=== PATIENT | female | born 1955 | race Caucasian/White ===

== ENCOUNTER 2022-01-18 09:13 | Emergency (ER) | payer MEDICARE, SELFPAY ==
--- NOTE | 2022-01-18 09:18 | ED.URI ---
HPI - URI/Sore Throat General Chief Complaint: Upper Respiratory Infection Stated Complaint: cough, congestion Time Seen by Provider: 01/18/22 09:18 Source: patient Mode of arrival: ambulatory Limitations: no limitations History of Present Illness HPI Narrative: Daniela is a 66-year-old female patient presenting to the clinic today with complaints of cough and congestion x5 days. She reports that she is having a dry cough and nasal congestion/postnasal drip. She denies any fever but has had some slight chills. Denies any shortness of breath or chest pain. Denies any known sick contacts MD elicited complaint: cough and nasal congestion Related Data Home Medications Medication Instructions Recorded Confirmed losartan 50 mg-hydrochlorothiazide tablet 01/18/22 12.5 mg tablet rosuvastatin 5 mg tablet mg 01/18/22 Allergies Allergy/AdvReac Type Severity Reaction Status Date / Time Penicillins Allergy Severe Unknown Verified 08/23/17 08:06 Review of Systems Review of Systems: Pertinent positives per HPI. Patient denies any fever, chills, rash, headache, visual changes, dizziness, shortness of breath, chest pain, palpitations, nausea, vomiting, diarrhea, constipation, abdominal pain, or any urinary issues. PMFSH Comments At the time of my signature, I reviewed and agree with the nursing past medical, surgical, social, and family history. There is no relevant family history pertinent to the patient complaint. Exam Narrative: General: Well-developed, well nourished, in no apparent distress Head: Normocephalic, atraumatic Eyes: Pupils equally round and reactive to light bilaterally, EOM intact, sclera and conjunctive clear, no discharge, lids normal Ears: TMs intact and clear, ear canals clear, no drainage, grossly hearing normal. Nose: Nares patent, clear nasal discharge, mild inflammation, no sinus tenderness. Mouth: Oral pharynx without lesions or masses, good dentition, MMM. Postnasal drip Neck: Supple, trachea midline, no enlargement of anterior or posterior cervical nodes, no thyroid masses or goiter palpable. Cardio: Regular rate and rhythm, s1 and s2 normal, no murmur appreciated. Resp: Clear to auscultation bilaterally, no rhonchi, rales, wheezing or rubs Course Course Emergency Course: Portions of this record may have been created with voice recognition software. Level of Care: Express Care Visit Vital Signs Vital signs: Vital Signs Temperature 37.0 C 01/18/22 09:22 Pulse Rate 91 01/18/22 09:22 Respiratory Rate 16 01/18/22 09:22 Blood Pressure 130/77 01/18/22 09:22 Pulse Oximetry 97 01/18/22 09:22 Oxygen Delivery Room Air 01/18/22 09:22 Temperature 37.0 C 01/18/22 09:22 Pulse Rate 91 01/18/22 09:22 Respiratory Rate 16 01/18/22 09:22 Blood Pressure 130/77 01/18/22 09:22 Pulse Oximetry 97 01/18/22 09:22 Oxygen Delivery Room Air 01/18/22 09:22 Vital signs reviewed MDM - URI/Sore Throat MDM Narrative Medical decision making narrative: At the time of visit patient is resting comfortably on the exam table. I suspect the patient has an upper respiratory infection/postnasal drip. I will give prescription for some prednisone to help dry up secretions and help with any inflammation as well as some Tessalon Perles to help with the cough.. Supportive measures were discussed with the patient she voiced understanding of discharge instructions and agrees to the treatment plan. Differential Diagnosis Differential diagnosis: Likely upper respiratory infection, otitis media, sinusitis, viral infection, bronchitis, influenza, pharyngitis and other (COVID) Discharge Plan Discharge Clinical Impression: Post-nasal drip Upper respiratory infection Qualifiers: URI type: unspecified viral URI Qualified Code(s): J06.9 - Acute upper respiratory infection, unspecified Patient Disposition: Home, Self-Care Condition: Stable Instructions: Antibiotic Form, Up
[2022-01-18 09:22] VITALS: BP 130/77; PULSE 91; RESP 16; TEMP 37; O2SAT 97
== END 2022-01-18 09:47 | disposition home or self-care (01) ==
PROVIDERS: Emergency Provider Nurse Practitioner Family
DX: R09.82 Postnasal drip (principal); J06.9 Acute upper respiratory infection, unspecified; E78.00 Pure hypercholesterolemia, unspecified; I10 Essential (primary) hypertension
CPT/HCPCS: 99203; G0463